=== PATIENT | female | born 1960 | race Caucasian/White ===

== ENCOUNTER 2020-12-11 13:54 | Emergency (ER) | payer MEDICARE, SELFPAY ==
--- NOTE | ~2020-12-11 | CT_ITS ---
EXAMINATION: CTA chest abdomen pelvis EXAM DATE: 12/11/2020 15:51 INDICATION: Right-sided chest and abdominal pain radiating to back, clinical concern for dissection. TECHNIQUE: Spiral CT of the chest, abdomen and pelvis was performed following intravenous injection o f 100 mL Omnipaque 350. Axial, coronal and sagittal images chest, abdomen and pelvis were reviewed. Coronal maximum intensity pixel images of chest reviewed. Maximum intensity projection 3-D reconstru ctions of the aorta were created by the technologist on dedicated workstation. The dose-length prod uct (DLP) for this examination was 1238.61 mGy-cm. The exposure was tailored according to patient si ze (auto mA exposure control), and iterative reconstruction (ASIR) was used as additional dose reduct ion technique. There is no prior study for comparison. FINDINGS: AORTA: Normal in caliber, no dissection. Mild scattered abdominal aortic arterial sclerosis. No centr al pulmonary emboli. CHEST: The lungs are clear. There are no pleural or pericardial effusions. Tracheobronchial tree is patent. There is no mediastinal, hilar or axillary lymphadenopathy. There is no pneumothorax. Heart normal in size. There is mild coronary arterial calcification, arterial sclerosis. ABDOMEN PELVIS: There is hepatic steatosis without suspicious focal lesion identified. Spleen, adrena l glands, pancreas are unremarkable. Gallbladder is unremarkable. No biliary obstruction. Portal a nd splenic veins are patent. Kidneys enhance symmetrically. There is no hydronephrosis. Some small left renal peripelvic cysts. The uterus is unremarkable. The bladder is unremarkable. There is no retroperitoneal or pelvic lymphadenopathy. There are no findings to suggest appendicitis. 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 There is expected amount of colonic stool. No free intraperitoneal gas. The bones are unremarkable. IMPRESSION: 1. Unremarkable aorta, no acute thoracic or abdominal findings. 2. Gastric bypass. Reviewed, dictated and finalized at location B.
[2020-12-11 13:57] VITALS: BP 143/107; PULSE 110; RESP 30; O2SAT 99
--- NOTE | 2020-12-11 13:58 | ECG_ITS ---
Measurements Intervals [place] Rate: 109 P: 56 VA: 154 QRS: 7 QRSD: 81 T: 51 QT: 317 QTc: 427 Interpretive Statements SINUS TACHYCARDIA POSSIBLE LEFT ATRIAL ENLARGEMENT DELAYED PRECORDIAL R/S TRANSITION BASELINE WANDER- V6 ABNORMAL ECG Electronically Signed On 12-11-2020 16:00:25 CDT by Raoul Castillo D.O.
--- NOTE | 2020-12-11 14:01 | ED.CHESTPAIN ---
HPI - Chest Pain General Chief Complaint: Chest Pain Stated Complaint: SOB Time Seen by Provider: 12/11/20 13:59 History of Present Illness HPI narrative: Chest pain for the past 4 days. Was mild, now severe. Radiating to the back. SHe has never had this pain before. Denies any medical problems or taking any medication. She traveled here by car from [place]. Pain started before the trip. Related Data Allergies Allergy/AdvReac Type Severity Reaction Status Date / Time acetaminophen [From Percocet] AdvReac Hives Verified 12/11/20 14:20 hydrocodone [From Vicodin] AdvReac Hives Verified 12/11/20 14:20 hydrocortisone AdvReac Hives Verified 12/11/20 14:20 [From Hydrocortone] oxycodone [From Percocet] AdvReac Hives Verified 12/11/20 14:20 Review of Systems Review of Systems: All systems reviewed & are unremarkable except as noted in HPI and below Constitutional: Constitutional: Denies chills and Denies fever(s) ENT: Denies sore throat Cardiovascular: Cardiovascular: Denies radiating jaw, neck or arm pain Respiratory: Respiratory: Denies chest congestion, Denies cough, Reports dyspnea and Denies wheezing Gastrointestinal: Gastrointestinal: Denies abdominal pain, Denies nausea and Denies vomiting Genitourinary: Genitourinary: Reports no additional female genitourinary complaints Musculoskeletal: Musculoskeletal: Reports as per HPI Neurologic: Denies dizziness and Denies weakness [facility] Social History Social History (Updated 12/11/20 @ 14:05 by Usman Mehta MD) Smoking status: Never smoker Exam Const: General: alert Orientation/consciousness: patient oriented x3 Other: Mild distress HENMT: Head: normal to inspection Eyes: Other: tearing Neck: Neck: normal visual inspection Chest: Chest palpation & inspection: normal inspection of the chest and no tenderness Resp: Effort & Inspection: tachypneic Auscultation: clear to auscultation bilaterally Cardio: Rate: tachycardic Rhythm: regular rhythm GI: GI Palp: Yes Soft to palpation and No Tenderness to palpation present (GI) Skin: General skin exam: normal color Neuro: General: patient oriented x3, moves all extremities, no focal motor deficits and CN's II-XI intact bilaterally Speech: normal speech Psych: Affect: Anxious affect present Course Vital Signs Vital signs: Vital Signs Pulse Rate 110 H 12/11/20 13:57 Respiratory Rate 30 H 12/11/20 13:57 Blood Pressure 143/107 H 12/11/20 13:57 Pulse Oximetry 99 12/11/20 13:57 Pulse Rate 81 12/11/20 18:14 Respiratory Rate 18 12/11/20 18:14 Blood Pressure 111/74 12/11/20 18:14 Pulse Oximetry 97 12/11/20 18:14 MDM - Chest Pain MDM Narrative Medical decision making narrative: Work-up entirely unremarkable. Patient seems unreliable. Could be related to fibromyalgia or other musculoskeletal cause. Differential Diagnosis Differential diagnosis: Likely st elevation myocardial infarction, chest pain and other (PE, aortic dissection) Lab Data Attestation: I reviewed the patient's lab results. Result diagrams: 12/11/20 14:09 Labs: Lab Results 12/11/20 12/11/20 12/11/20 Range/Units 14:09 14:09 14:36 PT 12.5 (11.1-14.7) Seconds INR 0.9 APTT 26.1 (22.3-36.8) SECONDS D-Dimer 0.27 (<0.48) ug/mL Sodium Cancelled 140 Potassium Cancelled 4.2 Chloride Cancelled 99 Carbon Dioxide Cancelled 26 Anion Gap Cancelled 15 BUN Cancelled 10 Creatinine Cancelled 0.70 Estim Creat Clear Calc Cancelled 78 Estimated GFR Cancelled > 60 Glucose Cancelled 128 H Calcium Cancelled 9.3 Total Bilirubin Cancelled 0.5 AST Cancelled 51 H ALT Cancelled 18 Alkaline Phosphatase Cancelled 124 Troponin I < 0.012 (0.000-0.034) ng/mL NT-Pro-B Natriuret Pep Cancelled 20 Total Protein Cancelled 9.0 H Albumin Cancelled 5.2 H 12/11/20 12/11/20 Range/Units 1
[2020-12-11 14:19] VITALS: BP 135/94; PULSE 91; RESP 25; O2SAT 96
[2020-12-11] MEDS: fentaNYL CITRATE INJ (*CRX) 100 MCG/2 ML VIAL 50 MCG IV PUSH (14:21)
[2020-12-11 14:29] LABS: Alanine Aminotransferase 18 U/L (4-35); Albumin Level 5.2 g/dL (3.5-5.1); Alkaline Phosphatase 124 U/L (38-126); Anion Gap 15 mmol/L (8-16); Aspartate Amino Transferase 51 U/L (14-36); Bilirubin,Total 0.5 mg/dL (0.2-1.3); Blood Urea Nitrogen 10 mg/dL (7-17); Calcium 9.3 mg/dL (8.4-10.2); Carbon Dioxide 26 mmol/L (22-30); Chloride 99 mmol/L (98-107); Estimated CRCL calculation 78 ml/min; Estimated Glomerular Filt Rate > 60; Glucose 128 mg/dL (65-105); Potassium 4.2 mmol/L (3.4-5.0); Sodium 140 mmol/L (137-145)
[2020-12-11 14:41] LABS: NT Pro B Type Natriuretic Pept 20 pg/mL (5-100); Troponin I < 0.012 ng/mL (0.000-0.034)
[2020-12-11 14:52] LABS: INR 0.9; Prothrombin Time 12.5 Seconds (11.1-14.7)
[2020-12-11 14:53] LABS: Partial Thromboplastin Time 26.1 SECONDS (22.3-36.8)
[2020-12-11 15:06] LABS: D Dimer 0.27 ug/mL (<0.48)
[2020-12-11 16:02] VITALS: BP 134/114; PULSE 76; RESP 17; O2SAT 99
--- NOTE | 2020-12-11 17:14 | PC.NURSE ---
Patient walked to bathroom without difficulty and in no distress.
[2020-12-11 17:37] LABS: Troponin I < 0.012 ng/mL (0.000-0.034)
[2020-12-11 17:51] VITALS: BP 118/77; PULSE 80; RESP 19; O2SAT 100
[2020-12-11 18:14] VITALS: BP 111/74; PULSE 81; RESP 18; O2SAT 97
== END 2020-12-11 18:22 | disposition home or self-care (01) ==
PROVIDERS: Emergency Provider Emergency Medicine
DX: R07.89 Other chest pain (principal); Z98.84 Bariatric surgery status; R00.0 Tachycardia, unspecified; R94.31 Abnormal electrocardiogram [ECG] [EKG]
CPT/HCPCS: 36415; 71275; 74174; 80053; 83880; 84484; 85380; 85610; 85730; 93005; 96374; 99284; J3010; Q9967